=== PATIENT | female | born 1940 | race Caucasian/White ===

== ENCOUNTER → 2016-04-02 | Outpatient (CLI) | payer OTHER, BC ==
[~2016-04-02] MED LIST: ADULT LOW DOSE81 MG PO; ALPRAZOLAM 0.50.5 MG; B-100 COMPLEX100 MG; HYDROCHLOROTHIA25 M1 PO; LISINOPRIL10 MG PO; MAGNESIUM GLUC250 MG PO; POTASSIUM; SIMVASTATIN40 MG PO; VITAMIN C120 GM PO; VITAMIN D1000 UNI1; ZETIA10 MG PO
== END ==
LOC: HYPER 06:56
DX: L97.811 Non-pressure chronic ulcer of other part of right lower leg limited to breakdown of skin (principal); I73.9 Peripheral vascular disease, unspecified; I10 Essential (primary) hypertension; Z87.891 Personal history of nicotine dependence; Z72.89 Other problems related to lifestyle